=== PATIENT | female | born 1945 | race Caucasian/White ===

== ENCOUNTER 2019-02-11 15:18 | Observation (INO) | payer MEDICARE, OTHER ==
[~2019-02-11] VITALS: Ht 167.6 cm; Wt 47.3 kg
[~2019-02-11 15:18] MED LIST: AMLODIPINE BESYL5 MG PO; CARVEDILOL3.125 MG PO; CIPRO500 MG PO; CRESTOR10 MG PO; DIAZEPAM5 MG PO; KEFLEX500 MG PO; LEVAQUIN750 MG PO; LEVETIRACETAM500 MG PO; LISINOPRIL2.5 MG PO; MACROBID 100 M100 MG PO; NITROSTAT0.4 MG SL; NORCO 5-325 TA1 EACH PO; OMEPRAZOLE20 MG PO; PLAVIX75 MG PO; RANITIDINE HCL300 M1 PO; TYLENOL EXTRA500 MG PO; VITAMIN D1000 UNIT PO
--- OUTSIDE RECORDS SUMMARY | 2019-02-11 15:20 | XMS ---
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 E.D. VISIT COUNT (12 MO.) 1 JOSE Malin TOTAL 1 NOTE: Visits indicate total known visits. ED/UCC VISIT TRACKING (12 MO.) 02/11/2019 15:19 [facility] TYPE: Emergency COMPLAINT: - ABDOMINAL PAIN INPATIENT VISIT TRACKING (12 MO.) No inpatient visits to display in this time frame [id number]
--- NOTE | 2019-02-11 21:00 | NUR ---
PT ARRIVED TO UNIT VIA STRETCHER. SHE HAS A FRIEND WITH HER WHO JUST LEFT. PT IS TUCKED INTO BED AN ORIENTED TO UNIT. VS STABLE AND SHE DENIES NEEDS AT THIS TIME. CALL LIGHT IS CLOSE.
--- NOTE | 2019-02-11 21:15 | NUR ---
PT ARRIVED FROM ER VIA STRETCHER. FULL ASSIST TO HOSPITAL BED. NOTED SEVERE CONTRACTURES OF ALL EXTREMITIES, VERY LIMITED MOVMENT. PT AWAKENS TO VOICE AND IS ORIENTED TO ALL BUT IS EXTREMELY DROWSY. GAUZE TO LEFT SUPAPUBIC AREA. DOTY PUTTING OUT THICK, PURULENT DRAINAGE. CLOSED WOUND TO RIGHT OUT FOOT AT PINKY TOE JOINT, PICS IN CHART. CALL LIGHT WITHIN REACH.
--- NOTE | 2019-02-11 23:34 | NUR ---
PT RESTING SOUNDLY IN BED ON BACK, EYES CLOSED, RESP EVEN AND UNLABORED.
--- NOTE | 2019-02-12 01:04 | NUR ---
RECIEVED REPORT. PT IN BED RESTING WELL WITH EYES CLOSED. NO SIGNS OF DISTRESS, PAIN, OR DISCOMFORT.
--- NOTE | 2019-02-12 03:10 | NUR ---
PT AWAKE. REQUESTING BREAKFAST. OFFERED AND FED APPLE SAUCE. DENIES PAIN OR DISCOMFORT AT THIS TIME.
--- NOTE | 2019-02-12 06:55 | NUR ---
ORDERED BREAKFASTAT PATIETNS REQUEST. PT ALSO WOULD ENJOY SOEM CLASSICAL MUSIC DURRING HER STAY.
--- NOTE | 2019-02-12 07:41 | NUR ---
0720: BEDSIDE REPORT RECIEVED FROM ZACKERY CHAVEZ. PT RESTING IN HER BED AND SHE DENIES ANY PAIN OR OTHER PROBLEMS AT THIS TIME. CALL LANCE WITHIN REACH.
--- NOTE | 2019-02-12 08:53 | NUR ---
PT RESTING IN HER BED AND SHE DENIES ANY PAIN OR PROBLEMS. PT REPOSITIONED AND IS NOW SITTING UP HIGH IN HER BED. PT'S FRIEND ARRIVED AND IS NOW FEEDING THE PT BREAKFAST. SHE STATES THAT SHE NORMALY COMES INTO [place] AND FEEDS HER THERE WELL. CALL LANCE IS WITHIN REACH.
[2019-02-12] MEDS ORDERED: MORPHINE S10 MG/5 ML PO (09:52)
--- NOTE | 2019-02-12 09:52 | NUR ---
Dr Medrano in the room speaking with the pt and assessing her.
[2019-02-12] MEDS ORDERED: ONDANSETRON ODT4 MG SL (09:53)
[2019-02-12] MEDS ORDERED: LIQUITEARS15 ML OU (09:53)
[2019-02-12] MEDS ORDERED: LORAZEPAM2 MG/1 M2 PO (09:54)
--- NOTE | 2019-02-12 11:24 | NUR ---
IV SITE DC'D TIP INTACT. PT GETTING READY FOR A TRANSFER TO [facility] AT THIS TIME. REPORT CALLED TO KHALIF CHAVEZ AT [facility]. DOTY CATH REMAINS IN PLACE FOR COMFORT ORDERED BY DR WETZEL.
--- NOTE | 2019-02-12 11:35 | NUR ---
1135: PT TRANSFERED VIA THE AMBULANCE BACK TO [place] AT THIS TIME.
--- NOTE | 2019-02-12 12:21 | NUR ---
DR WETZEL REQUESTED I VISIT WITH PT. HER FRIEND WAS IN WITH PT, PT HAS LITTLE VERBAL SKILLS, FRIEND ASKED IF I COULD SERVE HER COMMUNION. CONSULTED WITH SCOTT HUI, CONFIRMED SHE COULDNOT CONSUME SOLID FOOD, MADE SPECIAL COMMUNION COMPATIBLE WITH PTS' NEEDS. OFFERED PRAYER I SERVED, PT SMILED AND KNODDED. WILL FOLLOW NEEDED
--- NOTE | 2019-02-12 18:52 | NUR ---
BEFORE SHE DISCHARGED TODAY HER FRIEND AND I WASHED HER HAIR WITH A SHAMPOO CAP. DID ORAL CARE WASHED HER FACE.
== END 2019-02-12 11:35 ==
LOC: ED 15:18 → MS 15:20
PROVIDERS: ADMIT Internal Medicine
DX: K65.1 Peritoneal abscess (principal); D50.9 Iron deficiency anemia, unspecified; G35 Multiple sclerosis; N31.9 Neuromuscular dysfunction of bladder, unspecified; I25.2 Old myocardial infarction; I25.10 Atherosclerotic heart disease of native coronary artery without angina pectoris; R13.12 Dysphagia, oropharyngeal phase; E78.5 Hyperlipidemia, unspecified; K21.9 Gastro-esophageal reflux disease without esophagitis; G40.909 Epilepsy, unspecified, not intractable, without status epilepticus; E43 Unspecified severe protein-calorie malnutrition; Z51.5 Encounter for palliative care; Z68.1 Body mass index [BMI] 19.9 or less, adult; Z74.01 Bed confinement status; Z88.0 Allergy status to penicillin; Z86.73 Personal history of transient ischemic attack (TIA), and cerebral infarction without residual deficits; Z87.440 Personal history of urinary (tract) infections; Z66 Do not resuscitate; Z79.84 Long term (current) use of oral hypoglycemic drugs; Z79.02 Long term (current) use of antithrombotics/antiplatelets; Z79.899 Other long term (current) drug therapy
CPT/HCPCS: 36415; 51702; 74177; 80053; 81001; 83605; 83690; 85025; 86850; 86900; 86901; 87070; 87077; 87088; 87186; 87205; 99285-25; G0378; J0692; J3370; J7060; Q9967

== ENCOUNTER 2020-12-02 10:50 | Emergency (ER) | payer MEDICARE, OTHER ==
[~2020-12-02] VITALS: Ht 160 cm; Wt 67.6 kg
[~2020-12-02 10:50] MED LIST changes: +LIQUITEARS15 ML OU; +LORAZEPAM2 MG/1 M2 PO; +MORPHINE S10 MG/5 ML PO; +ONDANSETRON ODT4 MG SL
[2020-12-02] MEDS ORDERED: GABAPENTIN100 MG PO (11:11)
[2020-12-02] MEDS ORDERED: SULFAMETHOXAZO1 EAC1 PO (11:14)
[2020-12-02] MEDS ORDERED: MELATONIN3 M3 PO (11:14)
[2020-12-02] MEDS ORDERED: TRAMADOL HCL50 MG PO (11:15)
[2020-12-02] MEDS ORDERED: BACLOFEN10 MG PO (11:15)
[2020-12-02] MEDS ORDERED: HYDROCODON-ACE1 EA10 PO ×2 (11:16→12:53)
--- OUTSIDE RECORDS SUMMARY | 2020-12-02 12:34 | XMS ---
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 [employer] LLCREUNION REHABILIT[facility] HOSPITAL PHOENIXContacts+. 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 EDaren VISIT COUNT (12 MO.) Alex Malin TOTAL 1 NOTE: Visits indicate total known visits. ED/UCC VISIT TRACKING (12 MO.) 12/02/2020 10:[address] [facility] OR TYPE: Emergency COMPLAINT: - GLF, L KNEE PAIN INPATIENT VISIT TRACKING (12 MO.) No inpatient visits to display in this time frame [id number]
== END 2020-12-02 13:23 | disposition home or self-care (01) ==
LOC: ED 10:50
DX: S72.342A Displaced spiral fracture of shaft of left femur, initial encounter for closed fracture (principal); X58.XXXA Exposure to other specified factors, initial encounter; I25.2 Old myocardial infarction; Z86.73 Personal history of transient ischemic attack (TIA), and cerebral infarction without residual deficits; Z88.0 Allergy status to penicillin; Z79.899 Other long term (current) drug therapy; Z79.891 Long term (current) use of opiate analgesic
CPT/HCPCS: 73560; 96372; 99283-25; J1170